=== PATIENT | male | born 1975 | race Caucasian/White ===

== ENCOUNTER 2017-06-24 10:51 | Emergency (ER) | payer MEDICARE, OTHER ==
--- NOTE | 2017-06-24 12:10 | ERNOTE ---
Lower Extremity HPI - Narrative Date of Service: 06/24/17 - General Lower Extremities Pain: knee: right - patients knee gave out at work and he fell on knee Time Seen by Provider: 06/24/17 11:09 Source: patient, family Exam Limitations: no limitations - Immun/Allergies/Home Medications Immunizations: IMMUNIZATION HX Immunizations Up to Date Yes History of Influenza Vaccine No Hx Pneumococcal Vaccination No Allergies/Adverse Reactions: Allergies Allergy/AdvReac Type Severity Reaction Status Date / Time No Known Allergies Allergy Verified 06/24/17 11:04 Home Medications: HOME MEDICATIONS levETIRAcetam [Keppra] 500 mg PO BID 10/24/15 [Last Taken Unknown] traMADol HCL [Ultram] 50 mg PO QID PRN #20 tab 06/24/17 [Last Taken Unknown] - History of Present Illness Narrative: partients knee gave out and patient fell on knee Occurred: just prior to arrival Location of Incident: work Method of Injury: Reports: fell Reason for Fall: Reports: lost balance, other - knee gave out Loss of Consciousness: Reports: no loss of consciousness Modifying Factors - (Improves): Reports: rest Modifying Factors - (Worsens): Reports: movement Associated Symptoms: Reports: unable to bear weight Other Injuries: Reports: none Subsequent Symptoms: Reports: other - no other symptoms Review of Systems - Narrative Narrative: patients knee gave out and patient fell on knee - Review of Systems Constitutional: Present: See HPI EYE: Present: no symptoms reported ENT: Present: no symptoms reported Respiratory: Present: no symptoms reported Cardiology: Present: no symptoms reported Gastrointestinal/Abdominal: Present: no symptoms reported Genitourinary: Present: no symptoms reported Musculoskeletal: Present: See HPI, joint pain, joint swelling - right knee tender aand swollen, no deformity noted Skin: Present: no symptoms reported Neurological: Present: no symptoms reported Endocrine: Present: no symptoms reported - Narrative Narrative: unremarkable - Patient's Past Medical History Patient History - Medical: Kidney stone, Seizures Patient History - Cardiac/Respiratory: CVA/Stroke, Hypertension, Hyperlipidemia , Myocardial Infarction Patient History - Cancer: No Hx of Cancer Patient History - Surgical Procedures: Appendectomy, Other Patient History - Other: None - Family History Family History:: no untoward family reactions to anesthesia, no familial bleeding tendencies, no family history of clotting disorders, no family history of premature - Social History Living Situations: home Abuse History: No History of abuse Psych History: No pertinent hx Smoking Status: Never smoker Have you smoked in the past 12 months: No Do you dip or chew tobacco: No Patient requests Smoking Cessation Consult: No Alcohol Use: none Drug Use: none - Immunizations Immunizations Up to Date: Yes Hx Pneumococcal Vaccination: No History of Influenza Vaccine: No Physical Exam - Physical Exam General Appearance: Present: mild distress, anxious Head Exam: Present: normal inspection, no evidence of injury Eye Exam: Normal inspection: bilateral, PERRL: bilateral, EOMI: bilateral Ears, Nose, Throat: Present: normal ENT inspection, normal pharynx Neck: Present: normal inspection, nontender Respiratory: Present: no respiratory distress, normal breath sounds, no accessory muscle use, chest nontender, lungs clear Cardiovascular/Chest: Present: regular rate, rhythm, no murmur, normal peripheral pulses Peripheral Pulses: N=norm/S=strong/W=weak/B=bound/A=absent: Carotid (R): Normal , Carotid (L): Normal, Radial (R): Normal, Radial (L): Normal, Femoral (R): Normal, Femoral (L): Normal, Dorsalis-pedis (R): Normal, Dorsalis-pedis (L): Normal Back Exam: Present: normal inspection, normal range of motion, no CVA tenderness , no vertebral tenderness Extremity Exam: Present: decreased range of motion, joint swelling, other - right knee swollen no deformity noted Neurological Exam: Present: alert, oriented, normal mood/affect, no motor/ sensory deficits DTR: N=norm/NB=norm/brisk/A=abs/DD=dull/dimin/HC=hyperactive: Bicep (R): Normal , Bicep (L): Normal, Tricep (R): Normal, Tricep (L): Normal, Knee (R): Normal, Knee (L): Normal ED Progress - Date and Time Seen: Date and Time: 06/24/17 12:07 unchanged - Results and Orders Patient's Lab Results:: I have reviewed the patient's lab results. - Vital Signs Patient's Vital Signs:: I have reviewed the patient's vital signs. Vital Signs: Vital Signs 06/24/17 10:59 Temperature 36.8 C Pulse Rate 80 Respiratory 14 Rate O2 Sat by Pulse 97 Oximetry - X-Ray X-Ray #1 X-Ray: knee - no osseus deformity - Progress/Reassessment Chief Complaint: Lower Extremity Pain/ Injury Progress:: Improved - Transfer of Care Expected Disposition: Discharge Departure Clinical Impression: Right knee sprain - Departure Disposition: Home self-care Condition: Fair Instructions: Knee Sprain, [id number] Prescriptions: traMADol HCL [Ultram] 50 mg PO QID PRN #20 tab PRN Reason: Pain
== END 2017-06-24 12:27 | disposition home or self-care (01) ==
LOC: ER 10:51
DX: Z87.442 Personal history of urinary calculi; S83.91XA Sprain of unspecified site of right knee, initial encounter; Y99.0 Civilian activity done for income or pay; I25.2 Old myocardial infarction; Y93.89 Activity, other specified; W19.XXXA Unspecified fall, initial encounter; R56.9 Unspecified convulsions; Y92.89 Other specified places as the place of occurrence of the external cause